=== PATIENT | female | born 1970 | race Caucasian/White ===

== ENCOUNTER 2020-09-14 12:43 | Emergency (ER) | payer MEDICAID ==
[~2020-09-14] VITALS: Ht 165.1 cm; Wt 59.0 kg
[2020-09-14 12:51] VITALS: BP 137/76
--- NOTE | 2020-09-14 13:19 | NUR ---
Pt bib family c/o syncopal episode with nausea/vomiting and dizziness since this monring medhx: denies
[2020-09-14] MEDS: diphenhydrAMINE 50 MG/ML VIAL IVP ONE (14:39)
[2020-09-14] MEDS: NACL 0.9% 1,000 ML IV ONE (14:39)
[2020-09-14] MEDS: METOCLOPRAMIDE 10 MG/2 ML INJ VIAL IVP ONE (14:40)
[2020-09-14] MEDS: MORPHINE SULFATE 4 MG/ML SYR IVP ONE (15:33)
[2020-09-14 17:14] VITALS: BP 137/76
--- NOTE | 2020-09-14 17:14 | NUR ---
Patient discharged with v/s stable. Written and verbal after care instructions given and explained. Patient alert, oriented and verbalized understanding of instructions. Ambulatory with steady gait. All questions addressed prior to discharge. ID band removed. Patient advised to follow up with PMD. Rx of zofran,motrin and norco given. Patient educated on indication of medication including possible reaction and side effects. Opportunity to ask questions provided and answered.
== END 2020-09-14 17:14 | disposition home or self-care (01) ==
LOC: MED 12:43
DX: R51.9 Headache, unspecified (principal); R55 Syncope and collapse; R11.2 Nausea with vomiting, unspecified; Z98.890 Other specified postprocedural states
CPT/HCPCS: 93005; 96361; 96374; 96375; 99284; J1200; J2270; J2765; J7030